=== PATIENT | female | born 1985 | race Caucasian/White ===

== ENCOUNTER 2019-06-05 21:57 | Emergency (ER) | payer SELFPAY ==
[~2019-06-05] VITALS: Ht 167.6 cm; Wt 66.0 kg
[2019-06-05 22:08] VITALS: BP 120/76; PULSE 78; RESP 18; Ht 167.6 cm; Wt 66.0 kg
[2019-06-05] MEDS ORDERED: HC30CR25 TOP (23:41)
[2019-06-05] MEDS ORDERED: BEN25 PO (23:41)
[2019-06-05] MEDS ORDERED: DOXY100T20 PO (23:41)
--- NOTE | 2019-06-06 00:43 | ERD ---
ER Documentation Chief Complaint Chief Complaint swelling/pain left ankle, denies trauma HPI 33-year-old female with no significant past medical history presents to the emergency department complaining of Worsening redness and swelling due to a bug bite to the medial ankle left medial ankle for the past 1 day. She reports associated pain which is moderate in severity. She tried no medication for relief of symptoms. She denies any other symptoms currently. ROS All systems reviewed and are negative except as per history of present illness. Medications Home Meds Active Scripts Hydrocortisone* Topical (Hydrocortisone* Topical) 2.5%-28.3 Gm Cream..g., 1 APPLIC TOP BID, #1 TUB Prov:GI CASTILLO PA-C 06/05/19 Doxycycline Hyclate* (Doxycycline Hyclate*) 100 Mg Tablet.dr, 100 MG PO BID for 10 Days, TAB Prov:GI CASTILLO PA-C 06/05/19 Diphenhydramine Hcl* (Benadryl*) 25 Mg Cap, 25 MG PO Q6 PRN for ITCHING/RASH, #30 TAB Prov:IG CASTILLO PA-C 06/05/19 Allergies Allergies: Coded Allergies: No Known Drug Allergies (Verified Allergy, Unknown, 06/05/19) PMhx/Soc Medical and Surgical Hx: pt denies Medical Hx, pt denies Surgical Hx Hx Alcohol Use: No Hx Substance Use: No Hx Tobacco Use: No Smoking Status: Never smoker FmHx Family History: No diabetes Physical Exam Vitals Vital Signs Date Temp Pulse Resp B/P (MAP) Pulse Ox O2 O2 Flow FiO2 Time Delivery Rate 06/05/19 98.8 78 18 120/76 98 22:08 (91) Physical Exam Const: No acute distress Head: Atraumatic Eyes: Normal Conjunctiva ENT: Normal External Ears, Nose and Mouth. Neck: Full range of motion. No meningismus. Resp: Clear to auscultation bilaterally Cardio: Regular rate and rhythm, no murmurs Skin: No petechiae or rashes Ext: Localized area of erythema and edema to the left lateral malleolus surrounding what appears to be an insect bite. No crepitus on palpation. No lymphatic streaking. Mild warmth. Neur: Awake and alert Psych: Normal Mood and Affect Procedures/MDM 33-year-old female presents with signs and symptoms most consistent with infected insect bite of the left ankle. No evidence to suggest necrotizing fasciitis, sepsis, ascending cellulitis, or other emergencies. Patient is stable vital signs and is nontoxic and well-appearing and appropriate for outpatient management. She will be given prescription for doxycycline, diphenhydramine, hydrocortisone topical. She was advised to return immediately for any new or worsening or concerning symptoms. Departure Diagnosis: Primary Impression: Infected insect bite Condition: Fair Patient Instructions: Insect Bites and Stings, Cellulitis Referrals: [facility] YOU HAVE RECEIVED A MEDICAL SCREENING EXAM AND THE RESULTS INDICATE THAT YOU DO NOT HAVE A CONDITION THAT REQUIRES URGENT TREATMENT IN THE EMERGENCY DEPARTMENT. FURTHER EVALUATION AND TREATMENT OF YOUR CONDITION CAN WAIT UNTIL YOU ARE SEEN IN YOUR DOCTORS OFFICE WITHIN THE NEXT 1-2 DAYS. IT IS YOUR RESPONSIBILITY TO MAKE AN APPOINTMENT FOR FOLOW-UP CARE. IF YOU HAVE A PRIMARY DOCTOR --you should call your primary doctor and schedule an appointment IF YOU DO NOT HAVE A PRIMARY DOCTOR YOU CAN CALL OUR PHYSICIAN REFERRAL HOTLINE AT IF YOU CAN NOT AFFORD TO SEE A PHYSICIAN YOU CAN CHOSE FROM THE FOLLOWING COUNTS INCLUDE 234 BEDS AT THE [facility] [address] [facility] [facility]. [facility] [address] [facility] [facility] [address] [facility] [address] [facility] [address] [facility] [facility]. [address] Additional Instructions: Call your primary care doctor TOMORROW for an appointment during the next 1-2 days.See the doctor sooner or return here if your condition worsens before your appointment time. GI CASTILLO PA-C Jun 06, 2019 00:43
== END 2019-06-06 00:09 | disposition home or self-care (01) ==
LOC: FTE 21:57
DX: S90.562A Insect bite (nonvenomous), left ankle, initial encounter (principal); L08.9 Local infection of the skin and subcutaneous tissue, unspecified; W57.XXXA Bitten or stung by nonvenomous insect and other nonvenomous arthropods, initial encounter; Y92.9 Unspecified place or not applicable
CPT/HCPCS: 99283